=== PATIENT | male | born 1935 | race Caucasian/White ===

== ENCOUNTER 2017-08-23 18:46 | Inpatient (IN) | payer OTHER, MEDICARE ==
[2017-08-23] MEDS ORDERED: SODIUM CHLORIDE 0.9% 1,000 ML IV STA ×2 (20:13→21:30)
[2017-08-23 20:33] LABS: Anisocytosis Slight; Basophils % (A) 1 %; CH 28.7; CHCM 32.2; Eosinophils # (A) 0.5 k/uL (0-0.7); Eosinophils % (A) 10 %; HCT 34.4 % (39.0-53.0); HDW 2.63; HGB 10.7 gm/dL (13.0-17.5); Luc # (Auto) 0.07; Luc % (Auto) 1; Lymphocytes # (A) 0.5 k/uL (1.0-4.8); Lymphocytes % (A) 9 %; MCH 28.1 pg (25.0-35.0); MCHC 31.2 g/dL (31.0-37.0); MCV 90.1 fL (80.0-100.0); Mean Platelet Volume 7.5; Monocytes # (A) 0.4 k/uL (0-1.0); Monocytes % (A) 7 %; Neutrophils # (A) 3.6 k/uL (1.3-7.7); Neutrophils % (A) 71 %; RBC 3.82 m/uL (4.30-5.90); RDW 18.1 % (11.5-15.5); WBC (Perox) 5.25
[2017-08-23 20:42] LABS: Calcium 11.6 mg/dL (8.4-10.2); Potassium 4.1 mmol/L (3.5-5.1); Total Bilirubin 0.6 mg/dL (0.2-1.3)
--- NOTE | 2017-08-23 21:00 | ED ---
General Adult HPI - General Chief complaint: Abdominal Pain Stated complaint: [facility] Time Seen by Provider: 08/23/17 19:15 Source: patient, RN notes reviewed, old records reviewed Mode of arrival: ambulatory Limitations: no limitations - History of Present Illness Initial comments: This is a 82-year-old male to the ER for evaluation. Patient has a for evaluation regarding abdominal discomfort abdominal pain. Patient states he recently had outpatient CT showing CA was told to come the hospital for evaluation. Patient states he feels weak decreased appetite and positive for weight loss. Patient denies fevers denies nausea or vomiting currently. Denies significant diarrhea. - Related Data Home Medications Medication Instructions Recorded Confirmed Apixaban [Eliquis] 5 mg PO BID 08/23/17 08/23/17 Aspirin EC [Ecotrin Low Dose] 81 mg PO HS 08/23/17 08/23/17 Loratadine [Claritin] 10 mg PO HS 08/23/17 08/23/17 Metoprolol Succinate [Toprol XL] 25 mg PO HS 08/23/17 08/23/17 Simvastatin [Zocor] 40 mg PO HS 08/23/17 08/23/17 Terazosin [Hytrin] 5 mg PO HS 08/23/17 08/23/17 Triamcinolone 0.1% Ointment 1 applic TOPICAL BID 08/23/17 08/23/17 [Kenalog] Allergies Allergy/AdvReac Type Severity Reaction Status Date / Time No Known Allergies Allergy Verified 08/23/17 19:51 Review of Systems ROS Statement: Those systems with pertinent positive or pertinent negative responses have been documented in the HPI. ROS Other: All systems not noted in ROS Statement are negative. Past Medical History Past Medical History: Hypertension History of Any Multi-Drug Resistant Organisms: None Reported Past Surgical History: Appendectomy, Ear Surgery Additional Past Surgical History / Comment(s): sinus surgery, eye surgery Past Psychological History: No Psychological Hx Reported Smoking Status: Current every day smoker Past Alcohol Use History: Occasional Past Drug Use History: None Reported General Exam Limitations: no limitations General appearance: alert, in no apparent distress Head exam: Present: atraumatic, normocephalic, normal inspection Eye exam: Present: normal appearance, PERRL, EOMI. Absent: scleral icterus, conjunctival injection, periorbital swelling ENT exam: Present: normal exam, mucous membranes moist Neck exam: Present: normal inspection. Absent: tenderness, meningismus, lymphadenopathy Respiratory exam: Present: normal lung sounds bilaterally. Absent: respiratory distress, wheezes, rales, rhonchi, stridor Cardiovascular Exam: Present: regular rate, normal rhythm, normal heart sounds. Absent: systolic murmur, diastolic murmur, rubs, gallop, clicks GI/Abdominal exam: Present: soft, normal bowel sounds. Absent: distended, tenderness, guarding, rebound, rigid Extremities exam: Present: normal inspection, full ROM, normal capillary refill. Absent: tenderness, pedal edema, joint swelling, calf tenderness Back exam: Present: normal inspection Neurological exam: Present: alert, oriented X3, CN II-XII intact Psychiatric exam: Present: normal affect, normal mood Skin exam: Present: warm, dry, intact, normal color. Absent: rash Course Vital Signs 08/23/17 19:09 Temperature 96.7 F L Pulse Rate 97 Respiratory 16 Rate Blood Pressure 133/75 O2 Sat by Pulse 100 Oximetry - Reevaluation(s) Reevaluation #1: 08/23/17 21:32 [facility] as call for patient's outpatient CT Reevaluation #2: 08/23/17 21:32 Patient denies any acute pain, mild nausea Medical Decision Making - Medical Decision Making 82 male to the ER are for evaluation of new diagnosis of abdominal mass. Patient also with acute pancreatitis. Patient is to be admitted for further evaluation and treatment, record request is made for patient's outpatient lab studies and CAT scan - Lab Data Result diagrams: 08/23/17 20:20 08/23/17 20:20 Lab Results 08/23/17 08/23/17 08/23/17 Range/Units 20:20 20:20 20:20 WBC 5.0 (3.8-10.6) k/uL RBC 3.82 L (4.30-5.90) m/uL Hgb 10.7 L (13.0-17.5) gm/dL Hct 34.4 L (39.0-53.0) % MCV 90.1 (80.0-100.0) fL MCH 28.1 (25.0-35.0) pg MCHC 31.2 (31.0-37.0) g/dL RDW 18.1 H (11.5-15.5) % Plt Count 265 (150-450) k/uL Neutrophils % 71 % Lymphocytes % 9 % Monocytes % 7 % Eosinophils % 10 % Basophils % 1 % Neutrophils # 3.6 (1.3-7.7) k/uL Lymphocytes # 0.5 L (1.0-4.8) k/uL Monocytes # 0.4 (0-1.0) k/uL Eosinophils # 0.5 (0-0.7) k/uL Basophils # 0.0 (0-0.2) k/uL Anisocytosis Slight Sodium 136 L (137-145) mmol/L Potassium 4.1 (3.5-5.1) mmol/L Chloride 101 (98-107) mmol/L Carbon Dioxide 25 (22-30) mmol/L Anion Gap 10 mmol/L BUN 25 H (9-20) mg/dL Creatinine 1.51 H (0.66-1.25) mg/dL Est GFR (MDRD) Af Amer 54 (>60 ml/min/1.73 sqM) Est GFR (MDRD) Non-Af 45 (>60 ml/min/1.73 sqM) Glucose 92 (74-99) mg/dL Calcium 11.6 H (8.4-10.2) mg/dL Total Bilirubin 0.6 (0.2-1.3) mg/dL AST 70 H (17-59) U/L ALT 68 (21-72) U/L Alkaline Phosphatase 466 H (38-126) U/L Total Creatine Kinase 33 L (55-170) U/L CK-MB (CK-2) 1.8 (0.0-2.4) ng/mL CK-MB (CK-2) Rel Index 5.5 Total Protein 6.0 L (6.3-8.2) g/dL Albumin 3.4 L (3.5-5.0) g/dL Amylase 193 H (30-110) U/L Lipase 1162 H (23-300) U/L Disposition Clinical Impression: Abdominal pain, Pancreatitis, Abdominal malignancy Disposition: ADMITTED IP TO THIS [facility] Condition: Fair Referrals: Moris Pickering DO [Primary Care Provider] - 1-2 days
[2017-08-23 21:03] LABS: Creatine Kinase MB 1.8 ng/mL (0.0-2.4)
[2017-08-24 00:52] VITALS: BMI 21.9
[2017-08-24] MEDS ORDERED: HYDROmorphone 0.5 MG/0.5 ML SYRINGE IVP PRN (15:00)
[2017-08-24] MEDS ORDERED: TEMAZEPAM 15 MG CAP PO PRN (15:00)
[2017-08-24] MEDS ORDERED: ALPRAZolam 0.25 MG TAB PO PRN (15:00)
--- NOTE | 2017-08-24 16:24 | HP ---
HISTORY AND PHYSICAL DATE OF SERVICE: 08/24/2017. CHIEF COMPLAINT: Abdominal pain and mass. HISTORY: This 82-year-old gentleman with a past medical hypertension, history of right leg DVT in 2006 being followed by the [facility] and Dr. Barnes in the outpatient setting apparently had a CT scan of the abdomen and pelvis in the [facility] which showed a mass lesion and the patient was recommended to go to the hospital and the patient presented to [facility] and admitted for further evaluation and treatment. There is no history of fever, rigors. No history of headache, loss of consciousness or seizures. The pain is reported in the mid part of the abdomen, radiating up to the umbilicus. Patient also reports a weight loss of about 10 pounds. There is no history of fever, rigors. No headache, loss of consciousness or seizures. The patient also had some dysphagia, nausea, vomiting and other symptoms also. PAST MEDICAL HISTORY: History of hypertension, history of DVT, history of surgeries, history of nicotine dependence. MEDICATIONS: Prior to admission include: 1. Kenalog 1 application b.i.d. 2. Hytrin 5 mg q.h.s. 3. Zocor 40 mg q.h.s. 4. Toprol XL 20 mg. 5. Claritin 10 mg daily. 6. Aspirin 81 mg daily. 7. Eliquis 5 mg p.o. b.i.d. ALLERGIES: None. FAMILY HISTORY: No history of heart disease or strokes in the family. SOCIAL HISTORY: Previous history of smoking. No history of alcohol. Otherwise the patient is apparently homeless according to him. REVIEW OF SYSTEMS: ENT: No diminished hearing or vision. CARDIOVASCULAR: No angina or palpitations. RESPIRATORY: No cough or hemoptysis. GI: As mentioned earlier. : No dysuria. NERVOUS SYSTEM: No numbness or weakness. ALLERGY/IMMUNOLOGY: No asthma or hayfever. MUSCULOSKELETAL: As mentioned earlier. HEMATOLOGY/ONCOLOGY: As mentioned earlier. ENDOCRINE: No history of diabetes or hypothyroidism. CONSTITUTIONAL: As mentioned earlier. DERMATOLOGY: Negative. RHEUMATOLOGY: Negative. PSYCHIATRY: As mentioned earlier. PHYSICAL EXAM: Patient is alert, oriented x3. Pulse 66, blood pressure 147/81, respirations 16, temperature is 97.8, pulse ox 98% on room air. HEENT: Conjunctivae normal. Oral mucosa moist. NECK: No jugular venous distention. No carotid bruit. No lymph nodes. CARDIOVASCULAR: S1, S2. RESPIRATORY: Breath sounds diminished in the bases. A few scattered rhonchi and crackles. ABDOMEN: Soft. Diffuse distention. Diffuse tenderness present. No guarding. No rigidity. No mass palpable. No hepatosplenomegaly. No ascites. LEGS: Minimal edema. NERVOUS SYSTEM: Higher functions as mentioned earlier. Moves all 4 limbs. No focal motor or sensory deficits. LYMPHATICS: No lymphadenopathy in the neck, axillae or groin. SKIN: No rash, ulcer or bleeding. LAB STUDIES: WBC 5, hemoglobin 10.7, sodium 130, potassium 4.9, creatinine 1.5. ASSESSMENT: 1. Abdominal pain rule out intraabdominal neoplasm. 2. Elevated amylase and lipase with pancreatitis. 3. Increased creatinine with renal failure. 4. Hypercalcemia. 5. Increased alkaline phosphatase. 6. Anemia normocytic. 7. History of hypertension. 8. History of weight loss. 9. History of DVT on the right leg. 10.Remote history of nicotine dependence. RECOMMENDATIONS AND DISCUSSION: In this 82-year-old gentleman who presented with multiple complex medical issues, will monitor the patient closely. Continue the current medications and continue symptomatic treatment. Will resume the home medications. Otherwise I would also recommend Dr. Jenkins and Dr. De Paz. Patient had multiple GI symptomatology. Patient might require endoscopes also but whatever the exact nature of the mass lesion is not available. Will obtain the CT scan reports and plan. The patient might also need biopsy depending upon the location of the mass lesion. The overall prognosis is guarded because of multiple complex medical issues as mentioned earlier. Further recommendations to follow. MMODL / IJN: [id number] /
[2017-08-24] MEDS: LORATADINE 10 MG TAB PO SCH (19:41)
[2017-08-24] MEDS: TERAZOSIN 5 MG CAP PO SCH (19:42)
[2017-08-24] MEDS: APIXABAN 5 MG TAB PO SCH (19:42)
[2017-08-24] MEDS: METOPROLOL SUCCINATE (ER) 25 MG TAB.ER.24H PO SCH (19:42)
[2017-08-24] MEDS: TRIAMCINOLONE ACET 0.1% OINTMENT 80 GM TUBE TOPICAL SCH (19:43)
[2017-08-24] MEDS ORDERED: NON-FORMULARY DRUG (Simvastatin 40 MG) PO SCH (21:00)
[2017-08-24] MEDS ORDERED: ASPIRIN 81 MG PO SCH (21:00)
[2017-08-25 07:52] LABS: Anisocytosis Slight; Basophils % (A) 1 %; CH 27.8; Eosinophils # (A) 0.4 k/uL (0-0.7); Eosinophils % (A) 10 %; HCT 29.8 % (39.0-53.0); HGB 9.4 gm/dL (13.0-17.5); Hypochromasia Slight; Luc # (Auto) 0.12; Luc % (Auto) 3; Lymphocytes # (A) 0.4 k/uL (1.0-4.8); Lymphocytes % (A) 9 %; MCH 28.7 pg (25.0-35.0); MCHC 31.6 g/dL (31.0-37.0); MCV 90.5 fL (80.0-100.0); Mean Platelet Volume 7.1; Monocytes # (A) 0.3 k/uL (0-1.0); Monocytes % (A) 8 %; Neutrophils # (A) 2.9 k/uL (1.3-7.7); Neutrophils % (A) 70 %; RBC 3.29 m/uL (4.30-5.90); RDW 17.5 % (11.5-15.5); WBC 4.1 k/uL (3.8-10.6)
[2017-08-25 08:10] LABS: ALT 71 U/L (21-72); AST 75 U/L (17-59); Alkaline Phosphatase 434 U/L (38-126); Amylase 172 U/L (30-110); Anion Gap 7 mmol/L; Blood Urea Nitrogen 23 mg/dL (9-20); Calcium 10.4 mg/dL (8.4-10.2); Carbon Dioxide 22 mmol/L (22-30); Chloride 107 mmol/L (98-107); Cholesterol 116 mg/dL (<200); Glucose 71 mg/dL (74-99); HDL Cholesterol 41 mg/dL (40-60); Non-African American GFR(MDRD) 56 (>60 ml/min/1.73 sqM); Potassium 4.4 mmol/L (3.5-5.1); Sodium 136 mmol/L (137-145); Total Bilirubin 0.6 mg/dL (0.2-1.3); Total Protein 4.7 g/dL (6.3-8.2)
[2017-08-25] MEDS: APIXABAN 5 MG TAB PO SCH ×2 (08:11→21:08)
[2017-08-25] MEDS: PANTOPRAZOLE 40 MG/10 ML VIAL IVP SCH (08:11)
[2017-08-25] MEDS: TRIAMCINOLONE ACET 0.1% OINTMENT 80 GM TUBE TOPICAL SCH ×2 (08:11→21:07)
[2017-08-25 13:44] LABS: INR 1.3 (<1.2); Prothrombin Time 12.4 sec (9.0-12.0)
[2017-08-25] MEDS ORDERED: RX INFO: IV CONTRAST WAS GIVEN 1 EACH MISC MISCELLANE PRN (14:50)
[2017-08-25] MEDS: IOHEXOL 350 MG/ML 25 ML BOTTLE (ORAL USE) PO PRN ×2 (15:32→16:30)
--- NOTE | 2017-08-25 17:21 | P.CONS ---
History of Present Illness - Reason for Consult Consult date: 08/25/17 concern for malignancy Requesting physician: Urbano Means - Chief Complaint sent to hospital by [facility] for abnormal CT - History of Present Illness Mr. Davidson is a very pleasant male pt who [facility]. He states that he has noticed changes in his health for about the last year. More recently he has c/o abd bloating and belching, he has lost about 8 lbs in the last month or so, he was recently diagnosed with RLE DVT and placed on anticoagulation, he vomited twice in the last month which he has not done before, he has constipation chronically but it has been worse. Pt noticed painless abd and suprapubic distension over the last month, he denies fever, sweats, dysphagia, he had EGD many years ago, no history of GERD or ulcer, no acute changes in breathing, [place]VAL[place], chest pain or palpitations, dizziness, both lower extremities are swollen, L>R, appetite fair, energy levels fair. Review of Systems 14 point ROS as stated in HPI Past Medical History Past Medical History: Hypertension Additional Past Medical History / Comment(s): Pt states he had blood clot in right leg in February 2017 History of Any Multi-Drug Resistant Organisms: None Reported Past Surgical History: Appendectomy, Ear Surgery Additional Past Surgical History / Comment(s): sinus surgery, eye surgery Past Psychological History: No Psychological Hx Reported Smoking Status: Former smoker Past Alcohol Use History: Occasional Past Drug Use History: None Reported Medications and Allergies Home Medications Medication Instructions Recorded Confirmed Type Apixaban [Eliquis] 5 mg PO BID 08/23/17 08/23/17 History Aspirin EC [Ecotrin Low Dose] 81 mg PO HS 08/23/17 08/23/17 History Loratadine [Claritin] 10 mg PO HS 08/23/17 08/23/17 History Metoprolol Succinate [Toprol XL] 25 mg PO HS 08/23/17 08/23/17 History Simvastatin [Zocor] 40 mg PO HS 08/23/17 08/23/17 History Terazosin [Hytrin] 5 mg PO HS 08/23/17 08/23/17 History Triamcinolone 0.1% Ointment 1 applic TOPICAL BID 08/23/17 08/23/17 History [Kenalog] Allergies Allergy/AdvReac Type Severity Reaction Status Date / Time No Known Allergies Allergy Verified 08/23/17 19:51 Physical Exam Vitals: Vital Signs Temp Pulse Resp BP Pulse Ox 08/25/17 15:00 97.5 F L 76 16 104/65 98 08/25/17 07:00 97.0 F L 79 18 117/67 96 08/24/17 23:16 78 18 08/24/17 21:25 97.5 F L 78 18 120/70 97 Intake and Output 08/25/17 08/25/17 08/25/17 06:59 14:59 22:59 Intake Total 590 Balance 590 Intake: Oral 590 Other: Voiding Method Toilet Toilet # Voids 2 2 Weight 67.585 kg - Constitutional General appearance: cooperative, no acute distress, thin - EENT Eyes: anicteric sclerae, EOMI, PERRLA, normal appearance ENT: hearing grossly normal, normal oropharynx - Respiratory Respiratory: bilateral: CTA - Cardiovascular Heart sounds: normal: S1, S2 leg Peripheral Edema: right: 1+, left: 2+, bilateral: Pitting - Gastrointestinal abd is distended, has mult palpable masses in the lower quadrants, no hepatosplenomegaly - Genitourinary suprapubic swelling, multiple lymph nodes palpable, largest and firmest is in the right inguinal area Male genitourinary: right inguinal lymphadenopathy - Integumentary Integumentary: pale - Neurologic Neurologic: CNII-XII intact - Musculoskeletal Musculoskeletal: strength equal bilaterally - Psychiatric Psychiatric: A&O x's 3, appropriate affect, intact judgment & insight Results CBC & Chem 7: 08/25/17 07:36 08/25/17 07:36 Labs: Abnormal Lab Results - Last 24 Hours (Table) 08/25/17 08/25/17 08/25/17 Range/Units 07:36 07:36 13:21 RBC 3.29 L (4.30-5.90) m/uL Hgb 9.4 L (13.0-17.5) gm/dL Hct 29.8 L (39.0-53.0) % RDW 17.5 H (11.5-15.5) % Lymphocytes # 0.4 L (1.0-4.8) k/uL PT 12.4 H (9.0-12.0) sec INR 1.3 H (<1.2) Sodium 136 L (137-145) mmol/L BUN 23 H (9-20) mg/dL Glucose 71 L (74-99) mg/dL Calcium 10.4 H (8.4-10.2) mg/dL AST 75 H (17-59) U/L Alkaline Phosphatase 434 H (38-126) U/L Total Protein 4.7 L (6.3-8.2) g/dL Albumin 2.4 L (3.5-5.0) g/dL Amylase 172 H (30-110) U/L Lipase 1149 H (23-300) U/L Comments: CT report from outside facility reviewed Assessment and Plan (1) Lymphadenopathy of other site Narrative/Plan: Case discussed with IM. CT ordered. Surgery will be consulted for lymph node excision Status: Acute (2) Deep vein thrombosis Narrative/Plan: RLE, pt on eliquis, this will be continued for now, hold day before lymph node excision planned then resume once ok with Surgeon. Status: Acute Time with Patient: Greater than 30
--- NOTE | 2017-08-25 17:38 | PN ---
PROGRESS NOTE DATE OF SERVICE: 08/25/2017 INTERVAL HISTORY: This 82-year-old gentleman who was admitted with abdominal pain and mass around the aorta was suspected of multiple intraabdominal lymphadenopathy. The possibility of lymphoma versus metastasis is considered at this time. The official reports available from the [place] and not disc. Hematology/Oncology is consulted. The patient complaining of abdomen pain which has been treated symptomatically. PAST MEDICAL HISTORY: Reviewed. REVIEW OF SYSTEMS: Cardiovascular system: No angina or palpitations. Respiratory: No cough. GI: As mentioned. : No dysuria or hematuria. Central nervous system: No numbness or weakness. CURRENT MEDICATIONS: Reviewed and include: 1. Xanax 0.5 t.i.d. 2. Eliquis 5 mg p.o. b.i.d. 3. Aspirin 81 mg. 4. Dilaudid. 5. Toprol-XL. 6. Restoril. 7. Protonix. 8. Hytrin. PHYSICAL EXAM: Patient is alert, oriented times three. Pulse is 79. Blood pressure 117/60, respiration 18, temperature 97 degrees, pulse ox 97% on room air. HEENT conjunctivae normal. Oral mucosa moist. Neck is no jugular venous distention. No carotid bruit. No lymph node enlargement. CARDIOVASCULAR: S1, S2 normal. No S3. No S4. Respiratory: Breath sounds diminished at the bases. A few scattered rhonchi. No crackles. ABDOMEN: Soft, obese, mild diffuse tenderness present. Legs: No edema no swelling. NERVOUS SYSTEM: Higher functions as mentioned. Moves all 4 limbs. No focal motor or sensory deficits. Lymphatics: Lymphatics: No lymph nodes palpable in the neck, axillae or groin. LABORATORY DATA: WBC 4.2, hemoglobin 9.5, INR 1.3, sodium is 136 and calcium is 10.4, alkaline phosphatase 434, albumin is 2.4, amylase 172, lipase 149. ASSESSMENT: 1. Abdominal pain possible intraabdominal neoplasm lymphoma versus metastatic malignancy. 2. Elevated amylase and lipase with possible pancreatitis or pancreatic involvement. 3. Increased creatinine with acute renal failure. 4. Hypercalcemia secondary to malignancy. 5. Increased alkaline phosphatase. 6. Anemia normocytic. 7. History of hypertension of recent weight loss. 8. History of deep vein thrombosis of the right leg. 9. Remote history of nicotine dependence. RECOMMENDATIONS AND DISCUSSION: Recommend to continue monitoring, symptomatic treatment, current management and treatment. Otherwise at this time. I recommend follow with Hematology/ Oncology. I will also discuss the case with interventional radiology for possible biopsy. Try to obtain the CD from [facility] if it is not available. The patient may have to have PET scan. Otherwise repeat labs. Once again, the prognosis guarded. Discussed with the patient and understands and agrees. Further recommendations to follow. Prognosis extremely guarded because of multiple medical issues. MMODL / IJN: [id number] / BRANDON
--- NOTE | 2017-08-25 18:01 | CT ---
EXAMINATION TYPE: CT abdomen pelvis w con DATE OF EXAM: 08/25/2017 COMPARISON: NONE HISTORY: Difficulty swallowing. CT DLP: 657.2 mGycm Automated exposure control for dose reduction was used. TECHNIQUE: Helical acquisition of images was performed from the lung bases through the pelvis. CONTRAST: Performed with Oral Contrast and with IV Contrast, patient injected with 100 mL of Omnipaque 300. FINDINGS: There are mild to moderate bilateral pleural effusions. There is patchy atelectasis at the lung bases . There is moderate ascites fluid throughout the abdomen. There is a 3 cm low-density area in the anter ior right lobe of the liver near the surface. Gallbladder appears normal. There are multiple cysts in the spleen. There is extensive retroperitoneal density encasing the abdominal aorta and the inferior vena cava. T his measures 10 x 10 cm. There is a 5 x 6 cm cyst in the lower pole right kidney. There is no hydronephrosis. There is also ad enopathy at the right renal hilum. Abdominal aorta is atheromatous. There is no sign of a bowel obstr uction. Bladder wall is somewhat thickened. Lumbar spine is intact. I see no focal bone destruction. There is bilateral hydronephrosis. I see no evidence of a bowel obstruction. I see no intestinal wall thickening. IMPRESSION: BILATERAL PLEURAL EFFUSIONS WITH BASILAR PULMONARY ATELECTASIS. MASSIVE ASCITES. LOW-DENSITY LESION ON THE ANTERIOR RIGHT LOBE OF THE LIVER. MASSIVE RETROPERITONEAL ADENOPATHY WITH B ILATERAL HYDRONEPHROSIS. THIS COULD RELATE TO LYMPHOMA. HYDRONEPHROSIS PROBABLY RELATES TO URETERAL I NVOLVEMENT. MILD BLADDER WALL THICKENING IS NONSPECIFIC. THERE IS SUBCUTANEOUS DENSITY NOTED THAT COULD RELATE TO ANASARCA.
[2017-08-25] MEDS: METOPROLOL SUCCINATE (ER) 25 MG TAB.ER.24H PO SCH (21:07)
[2017-08-25] MEDS: LORATADINE 10 MG TAB PO SCH (21:07)
[2017-08-25] MEDS: TERAZOSIN 5 MG CAP PO SCH (21:07)
[2017-08-26 07:26] LABS: Anisocytosis Slight; Basophils % (A) 1 %; CH 27.7; CHCM 30.9; Eosinophils # (A) 0.5 k/uL (0-0.7); Eosinophils % (A) 11 %; HCT 29.5 % (39.0-53.0); HDW 2.47; HGB 9.1 gm/dL (13.0-17.5); Hypochromasia Slight; Luc # (Auto) 0.12; Luc % (Auto) 3; Lymphocytes # (A) 0.4 k/uL (1.0-4.8); Lymphocytes % (A) 9 %; MCH 27.9 pg (25.0-35.0); MCHC 30.9 g/dL (31.0-37.0); MCV 90.4 fL (80.0-100.0); Mean Platelet Volume 6.9; Monocytes # (A) 0.4 k/uL (0-1.0); Monocytes % (A) 9 %; Neutrophils % (A) 68 %; RBC 3.27 m/uL (4.30-5.90); RDW 17.5 % (11.5-15.5); WBC 4.4 k/uL (3.8-10.6); WBC (Perox) 4.63
[2017-08-26 07:51] LABS: ALT 59 U/L (21-72); AST 53 U/L (17-59); Alkaline Phosphatase 414 U/L (38-126); Amylase 171 U/L (30-110); Anion Gap 6 mmol/L; Blood Urea Nitrogen 24 mg/dL (9-20); Calcium 10.6 mg/dL (8.4-10.2); Carbon Dioxide 24 mmol/L (22-30); Chloride 106 mmol/L (98-107); Glucose 72 mg/dL (74-99); Non-African American GFR(MDRD) 52 (>60 ml/min/1.73 sqM); Potassium 4.5 mmol/L (3.5-5.1); Sodium 136 mmol/L (137-145); Total Bilirubin 0.6 mg/dL (0.2-1.3); Total Protein 4.7 g/dL (6.3-8.2)
[2017-08-26] MEDS: APIXABAN 5 MG TAB PO SCH ×2 (10:37→20:50)
[2017-08-26] MEDS: TRIAMCINOLONE ACET 0.1% OINTMENT 80 GM TUBE TOPICAL SCH ×2 (10:37→20:49)
[2017-08-26] MEDS: PANTOPRAZOLE 40 MG/10 ML VIAL IVP SCH (10:37)
--- NOTE | 2017-08-26 12:27 | P.GSCN ---
History of Present Illness Consult date: 08/26/17 Reason for Consult: Right inguinal lymphadenopathy History of present illness: Mr. Davidson is a very pleasant male pt who has been to the [facility] recently for evaluation. He states that he has had weight loss over the last month that he has noticed of approximately 10 pounds. He states he has had multiple episodes of dysphagia that has led to bloating and emesis. He also states that he has recently been diagnosed with a blood clot. This is been a right lower extremity DVT and he has been on anticoagulation for this. Pt noticed painless abdominal distension over the last month. He denies fever, sweats, chills, chest pain or palpitations, dizziness. He does complain of swollen bilateral lower extremities Review of Systems All systems: negative Past Medical History Past Medical History: Hypertension Additional Past Medical History / Comment(s): Pt states he had blood clot in right leg in February 2017 History of Any Multi-Drug Resistant Organisms: None Reported Past Surgical History: Appendectomy, Ear Surgery Additional Past Surgical History / Comment(s): sinus surgery, eye surgery Past Psychological History: No Psychological Hx Reported Smoking Status: Former smoker Past Alcohol Use History: Occasional Past Drug Use History: None Reported Medications and Allergies Home Medications Medication Instructions Recorded Confirmed Type Apixaban [Eliquis] 5 mg PO BID 08/23/17 08/23/17 History Aspirin EC [Ecotrin Low Dose] 81 mg PO HS 08/23/17 08/23/17 History Loratadine [Claritin] 10 mg PO 08/23/17 08/23/17 History Metoprolol Succinate [Toprol XL] 25 mg PO HS 08/23/17 08/23/17 History Simvastatin [Zocor] 40 mg PO HS 08/23/17 08/23/17 History Terazosin [Hytrin] 5 mg PO HS 08/23/17 08/23/17 History Triamcinolone 0.1% Ointment 1 applic TOPICAL BID 08/23/17 08/23/17 History [Kenalog] Allergies Allergy/AdvReac Type Severity Reaction Status Date / Time No Known Allergies Allergy Verified 08/23/17 19:51 Surgical - Exam Osteopathic Statement: *. No significant issues noted on an osteopathic structural exam other than those noted in the History and Physical/Consult. Vital Signs Temp Pulse Resp BP Pulse Ox 96.7 F L 97 16 133/75 100 08/23/17 19:09 08/23/17 19:09 08/23/17 19:09 08/23/17 19:08/23/17 19:09 - General no distress, no pain - Eyes PERRL, normal ocular movement - ENT normal nares, normal mucosa, no hearing loss - Neck no masses, no bruits, trachea midline - Respiratory No difficulty with respiration - Cardiovascular Rhythm: regular Heart Sounds: normal: S1, S2 - Abdomen Soft, nontender, mildly distended, no rebound, no guarding, palpable right and left inguinal lymph nodes. - Integumentary no rash, no growths, no abnormal pigmentation - Neurologic normal coordination, normal sensation - Psychiatric oriented to time, oriented to person, oriented to place, speech is normal, memory intact Results - Labs 08/26/17 06:44 08/26/17 06:44 Abnormal Lab Results - Last 24 Hours (Table) 08/25/17 08/26/17 08/26/17 Range/Units 13:21 06:44 06:44 RBC 3.27 L (4.30-5.90) m/uL Hgb 9.1 L (13.0-17.5) gm/dL Hct 29.5 L (39.0-53.0) % MCHC 30.9 L (31.0-37.0) g/dL RDW 17.5 H (11.5-15.5) % Lymphocytes # 0.4 L (1.0-4.8) k/uL PT 12.4 H (9.0-12.0) sec INR 1.3 H (<1.2) Sodium 136 L (137-145) mmol/L BUN 24 H (9-20) mg/dL Creatinine 1.33 H (0.66-1.25) mg/dL Glucose 72 L (74-99) mg/dL Calcium 10.6 H (8.4-10.2) mg/dL Alkaline Phosphatase 414 H (38-126) U/L Total Protein 4.7 L (6.3-8.2) g/dL Albumin 2.4 L (3.5-5.0) g/dL Amylase 171 H (30-110) U/L Lipase 1140 H (23-300) U/L Diabetes panel 08/26/17 Range/Units 06:44 Sodium 136 L (137-145) mmol/L Potassium 4.5 (3.5-5.1) mmol/L Chloride 106 (98-107) mmol/L Carbon Dioxide 24 (22-30) mmol/L BUN 24 H (9-20) mg/dL Creatinine 1.33 H (0.66-1.25) mg/dL Glucose 72 L (74-99) mg/dL Calcium 10.6 H (8.4-10.2) mg/dL AST 53 (17-59) U/L ALT 59 (21-72) U/L Alkaline Phosphatase 414 H (38-126) U/L Total Protein 4.7 L (6.3-8.2) g/dL Albumin 2.4 L (3.5-5.0) g/dL Calcium panel 08/26/17 Range/Units 06:44 Calcium 10.6 H (8.4-10.2) mg/dL Albumin 2.4 L (3.5-5.0) g/dL Pituitary panel 08/26/17 Range/Units 06:44 Sodium 136 L (137-145) mmol/L Potassium 4.5 (3.5-5.1) mmol/L Chloride 106 (98-107) mmol/L Carbon Dioxide 24 (22-30) mmol/L BUN 24 H (9-20) mg/dL Creatinine 1.33 H (0.66-1.25) mg/dL Glucose 72 L (74-99) mg/dL Calcium 10.6 H (8.4-10.2) mg/dL Adrenal panel 08/26/17 Range/Units 06:44 Sodium 136 L (137-145) mmol/L Potassium 4.5 (3.5-5.1) mmol/L Chloride 106 (98-107) mmol/L Carbon Dioxide 24 (22-30) mmol/L BUN 24 H (9-20) mg/dL Creatinine 1.33 H (0.66-1.25) mg/dL Glucose 72 L (74-99) mg/dL Calcium 10.6 H (8.4-10.2) mg/dL Total Bilirubin 0.6 (0.2-1.3) mg/dL AST 53 (17-59) U/L ALT 59 (21-72) U/L Alkaline Phosphatase 414 H (38-126) U/L Total Protein 4.7 L (6.3-8.2) g/dL Albumin 2.4 L (3.5-5.0) g/dL Assessment and Plan (1) Lymphadenopathy of other site Status: Acute Plan: The patient does have palpable lymphadenopathy of bilateral inguinal areas. We will plan for lymph node biopsy. Further recommendations to follow.
[2017-08-26 14:31] LABS: Appearance,Urine Clear (Clear); Bilirubin,Urine Negative (Negative); Glucose,Urine (UA) Negative (Negative); Ketones,Urine Negative (Negative); Leukocyte Esterase,Urine Negative (Negative); Nitrite,Urine Negative (Negative); PH, Urine 5.5 (5.0-8.0); Protein,Urine Negative (Negative); Specific Gravity,Urine 1.009 (1.001-1.035); UA Billing (MACRO vs. MICRO) CHEM; Urobilinogen,Urine <2.0 mg/dL (<2.0)
--- NOTE | 2017-08-26 17:51 | PN ---
PROGRESS NOTE DATE OF SERVICE: 08/26/2017 INTERVAL HISTORY: This 82-year-old gentleman who was admitted with abdominal pain had intraabdominal neoplasm. Patient also had scheduled for biopsy on Monday. No chest pain. No palpitations. No fever. EXAM: Alert, oriented times three. Pulse 64, blood pressure 117/76, respiration 18, temperature 97.6, pulse ox 97% on room air. HEENT: Conjunctivae normal. Neck no JVD. CARDIOVASCULAR: S1, S2 muffled. Respiratory: Breath sounds diminished at the bases. Scattered rhonchi. No crackles. ABDOMEN: Soft, obese, nontender. No mass palpable. Legs no edema. No swelling. Right inguinal adenopathy present. Nervous system: No focal deficits. LABS: WBC 4.2, hemoglobin 10.1 and creatinine is 1.33. ASSESSMENT: 1. Abdominal pain. 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 2. Elevated amylase and lipase with possible pancreatitis or pancreatic malignancy. 3. Increased creatinine with acute renal failure. 4. Hypercalcemia secondary to malignancy. 5. Increased alkaline phosphatase. 6. Anemia, normocytic. 7. History of hypertension. RECOMMENDATIONS AND DISCUSSION: Continue current medication, continue current management and symptomatic treatment. Otherwise at this time lymph node biopsy by Dr. Flood on Monday. Prognosis guarded. Symptomatic treatment. Further recommendations to follow. MMODL / IJN: [id number] / BRANDON
[2017-08-26] MEDS: METOPROLOL SUCCINATE (ER) 25 MG TAB.ER.24H PO SCH (20:48)
[2017-08-26] MEDS: TERAZOSIN 5 MG CAP PO SCH (20:48)
[2017-08-26] MEDS: LORATADINE 10 MG TAB PO SCH (20:49)
[2017-08-27 07:02] LABS: Anisocytosis Slight; Basophils % (A) 1 %; CH 27.8; CHCM 30.9; Eosinophils # (A) 0.4 k/uL (0-0.7); Eosinophils % (A) 10 %; HCT 28.6 % (39.0-53.0); HDW 2.55; HGB 8.9 gm/dL (13.0-17.5); Hypochromasia Slight; Luc # (Auto) 0.12; Luc % (Auto) 3; Lymphocytes # (A) 0.4 k/uL (1.0-4.8); Lymphocytes % (A) 10 %; MCH 28.3 pg (25.0-35.0); MCHC 31.2 g/dL (31.0-37.0); MCV 90.6 fL (80.0-100.0); Mean Platelet Volume 6.9; Monocytes # (A) 0.3 k/uL (0-1.0); Monocytes % (A) 9 %; Neutrophils # (A) 2.6 k/uL (1.3-7.7); Neutrophils % (A) 67 %; RBC 3.16 m/uL (4.30-5.90); RDW 17.7 % (11.5-15.5); WBC 3.8 k/uL (3.8-10.6); WBC (Perox) 3.98
[2017-08-27 07:11] LABS: ALT 57 U/L (21-72); AST 51 U/L (17-59); Alkaline Phosphatase 434 U/L (38-126); Amylase 131 U/L (30-110); Anion Gap 7 mmol/L; Blood Urea Nitrogen 24 mg/dL (9-20); Calcium 10.6 mg/dL (8.4-10.2); Carbon Dioxide 23 mmol/L (22-30); Chloride 107 mmol/L (98-107); Glucose 63 mg/dL (74-99); Non-African American GFR(MDRD) 50 (>60 ml/min/1.73 sqM); Potassium 4.1 mmol/L (3.5-5.1); Sodium 137 mmol/L (137-145); Total Bilirubin 0.6 mg/dL (0.2-1.3); Total Protein 4.7 g/dL (6.3-8.2)
[2017-08-27] MEDS: PANTOPRAZOLE 40 MG TABLET PO SCH (07:41)
[2017-08-27] MEDS: TRIAMCINOLONE ACET 0.1% OINTMENT 80 GM TUBE TOPICAL SCH ×2 (07:42→21:48)
--- NOTE | 2017-08-27 10:33 | P.PN ---
Subjective Principal diagnosis: Lymphadenopathy Patient seen and examined at bedside. No acute events overnight. The patient has no complaints at this time. Objective - Vital Signs Vital signs: Vital Signs Temp 97.9 F 08/27/17 07:00 Pulse 87 08/27/17 07:00 Resp 18 08/27/17 07:00 BP 95/56 08/27/17 07:00 Pulse Ox 96 08/27/17 07:00 Intake & Output 08/26/17 08/27/17 08/27/17 18:59 06:59 18:59 Output Total 160 Balance -160 Weight 67.585 kg Output: Urine 160 Other: Voiding Method Toilet Toilet # Voids 1 1 - Constitutional General appearance: Present: cooperative, no acute distress - EENT Eyes: Present: EOMI, PERRLA ENT: Present: hearing grossly normal - Neck Neck: Present: normal ROM - Respiratory Details: No difficulty with respiration - Cardiovascular Rhythm: regular Heart sounds: normal: S1, S2 - Gastrointestinal Gastrointestinal Comment(s): Soft, nontender, positive distention, no rebound, no guarding - Genitourinary Male genitourinary: left inguinal lymphadenopathy - Integumentary Integumentary: Present: normal turgor - Psychiatric Psychiatric: Present: A&O x's 3, appropriate affect, intact judgment & insight - Labs CBC & Chem 7: 08/27/17 06:17 08/27/17 06:17 Labs: Abnormal Lab Results - Last 24 Hours (Table) 08/27/17 08/27/17 Range/Units 06:17 06:17 RBC 3.16 L (4.30-5.90) m/uL Hgb 8.9 L (13.0-17.5) gm/dL Hct 28.6 L (39.0-53.0) % RDW 17.7 H (11.5-15.5) % Lymphocytes # 0.4 L (1.0-4.8) k/uL BUN 24 H (9-20) mg/dL Creatinine 1.37 H (0.66-1.25) mg/dL Glucose 63 L (74-99) mg/dL Calcium 10.6 H (8.4-10.2) mg/dL Alkaline Phosphatase 434 H (38-126) U/L Total Protein 4.7 L (6.3-8.2) g/dL Albumin 2.3 L (3.5-5.0) g/dL Amylase 131 H (30-110) U/L Lipase 621 H (23-300) U/L Assessment and Plan (1) Lymphadenopathy of other site Status: Acute Plan: Plan for OR on 08/28/2017 for what all lymph node biopsy Hold anticoagulation Nothing by mouth after midnight Further recommendation to follow
[2017-08-27] MEDS: LORATADINE 10 MG TAB PO SCH (21:48)
[2017-08-27] MEDS: METOPROLOL SUCCINATE (ER) 25 MG TAB.ER.24H PO SCH (21:48)
[2017-08-27] MEDS: TERAZOSIN 5 MG CAP PO SCH (21:48)
[2017-08-28 07:42] LABS: ALT 53 U/L (21-72); AST 58 U/L (17-59); Alkaline Phosphatase 462 U/L (38-126); Amylase 139 U/L (30-110); Anion Gap 9 mmol/L; Blood Urea Nitrogen 23 mg/dL (9-20); Calcium 10.5 mg/dL (8.4-10.2); Carbon Dioxide 22 mmol/L (22-30); Chloride 108 mmol/L (98-107); Glucose 75 mg/dL (74-99); Non-African American GFR(MDRD) 50 (>60 ml/min/1.73 sqM); Potassium 4.3 mmol/L (3.5-5.1); Sodium 139 mmol/L (137-145); Total Bilirubin 0.4 mg/dL (0.2-1.3); Total Protein 4.7 g/dL (6.3-8.2)
[2017-08-28 07:45] LABS: Anisocytosis Slight; Basophils % (A) 1 %; CH 27.9; CHCM 30.7; Eosinophils # (A) 0.4 k/uL (0-0.7); Eosinophils % (A) 9 %; HDW 2.58; Hypochromasia Moderate; Luc # (Auto) 0.12; Luc % (Auto) 3; Lymphocytes # (A) 0.4 k/uL (1.0-4.8); Lymphocytes % (A) 9 %; MCH 28.3 pg (25.0-35.0); MCHC 30.9 g/dL (31.0-37.0); MCV 91.7 fL (80.0-100.0); Mean Platelet Volume 6.9; Monocytes # (A) 0.4 k/uL (0-1.0); Monocytes % (A) 9 %; Neutrophils # (A) 3.1 k/uL (1.3-7.7); Neutrophils % (A) 70 %; RBC 3.16 m/uL (4.30-5.90); RDW 17.9 % (11.5-15.5); WBC 4.4 k/uL (3.8-10.6); WBC (Perox) 4.46
--- NOTE | 2017-08-28 10:07 | P.PN ---
<Leatha Spencer - Last Filed: 08/28/17 09:57> Subjective 82-year-old male being seen and examined at bedside. No new events noted. Patient is aware of the plan of care. Patient currently is nothing by mouth scheduled this afternoon per Dr. Flood to undergo biopsy inguinal lymphadenopathy as part of the workup for acute lymphadenopathy. Patient's anticoagulation has been held for 48 hours. INR 1.3 hemoglobin 9 white count 4.4 electrolytes reviewed within normal limits creatinine 1.3 Objective - Vital Signs Vital signs: Vital Signs Temp 97.7 F 08/28/17 07:00 Pulse 78 08/28/17 07:00 Resp 18 08/28/17 07:00 BP 111/66 08/28/17 07:00 Pulse Ox 94 L 08/28/17 07:00 Intake & Output 08/27/17 08/28/17 08/28/17 18:59 06:59 18:59 Weight 67.585 kg Other: Voiding Method Toilet Toilet # Voids 2 1 - Exam Physical exam 82-year-old thin gentleman resting in bed denies any chest pain or shortness of breath Lungs diminished at the bases otherwise adequate air movement on room air Heart S1-S2 audible regular no murmur denying chest pain Abdomen soft not distended bowel tones present not able to palpate any organomegaly Extremities no calf tenderness no edema noted right inguinal adenopathy noted - Labs CBC & Chem 7: 08/28/17 06:59 08/28/17 06:59 Labs: Abnormal Lab Results - Last 24 Hours (Table) 08/28/17 08/28/17 Range/Units 06:59 06:59 RBC 3.16 L (4.30-5.90) m/uL Hgb 9.0 L (13.0-17.5) gm/dL Hct 29.0 L (39.0-53.0) % MCHC 30.9 L (31.0-37.0) g/dL RDW 17.9 H (11.5-15.5) % Lymphocytes # 0.4 L (1.0-4.8) k/uL Chloride 108 H (98-107) mmol/L BUN 23 H (9-20) mg/dL Creatinine 1.38 H (0.66-1.25) mg/dL Calcium 10.5 H (8.4-10.2) mg/dL Alkaline Phosphatase 462 H (38-126) U/L Total Protein 4.7 L (6.3-8.2) g/dL Albumin 2.4 L (3.5-5.0) g/dL Amylase 139 H (30-110) U/L Lipase 881 H (23-300) U/L Assessment and Plan Plan: Impression Right inguinal lymphadenopathy present on admission Recent diagnosis right lower extremity DVT on elquis Mild protein calorie malnutrition Present on admission elevated amylase lipase Plan Patient will be scheduled today by Dr. Flood undergo an excision and obtain a lymph node biopsy as part of the workup for lymphadenopathy Keep nothing by mouth daryl has been on hold The above impression and plan of care have been discussed and directed by signing physician. Leatha Spencer nurse practitioner acting as scribe for signing physician. <Kraig Flood - Last Filed: 08/28/17 17:58> Objective - Vital Signs Vital signs: Vital Signs Temp 98 F 08/28/17 15:00 Pulse 82 08/28/17 15:00 Resp 18 08/28/17 15:00 BP 118/72 08/28/17 15:00 Pulse Ox 95 08/28/17 15:00 Intake & Output 08/27/17 08/28/17 08/28/17 18:59 06:59 18:59 Intake Total 200 Balance 200 Weight 67.585 kg 67.585 kg Intake: IV 200 Oral 0 Other: Voiding Method Toilet Toilet Toilet # Voids 2 1 - Labs CBC & Chem 7: 08/28/17 06:59 08/28/17 06:59 Labs: Abnormal Lab Results - Last 24 Hours (Table) 08/28/17 08/28/17 Range/Units 06:59 06:59 RBC 3.16 L (4.30-5.90) m/uL Hgb 9.0 L (13.0-17.5) gm/dL Hct 29.0 L (39.0-53.0) % MCHC 30.9 L (31.0-37.0) g/dL RDW 17.9 H (11.5-15.5) % Lymphocytes # 0.4 L (1.0-4.8) k/uL Chloride 108 H (98-107) mmol/L BUN 23 H (9-20) mg/dL Creatinine 1.38 H (0.66-1.25) mg/dL Calcium 10.5 H (8.4-10.2) mg/dL Alkaline Phosphatase 462 H (38-126) U/L Total Protein 4.7 L (6.3-8.2) g/dL Albumin 2.4 L (3.5-5.0) g/dL Amylase 139 H (30-110) U/L Lipase 881 H (23-300) U/L Assessment and Plan Plan: As above. Patient with generalized adenopathy in the retroperitoneum and bilateral groin. Patient requires lymph node biopsy. The operating room is overly booked this evening. For that reason his surgery from today is being canceled and replaced on the schedule for tomorrow. The patient is requesting to be discharged. I told him that would be between himself and his admitting physician. The risks of bleeding, infection, seroma, numbness were discussed. He understands and wishes to proceed.
[2017-08-28] MEDS ORDERED: LACTATED RINGERS 1,000 ML IV ONE (13:52)
[2017-08-28] MEDS: PANTOPRAZOLE 40 MG TABLET PO SCH (18:31)
[2017-08-28] MEDS: TRIAMCINOLONE ACET 0.1% OINTMENT 80 GM TUBE TOPICAL SCH ×2 (18:32→21:47)
--- NOTE | 2017-08-28 20:47 | PN ---
PROGRESS NOTE DATE OF SERVICE: 08/27/2017 This 82-year-old gentleman who was admitted with abdominal pain and features of possible lymphoma also had multiple lymphadenopathy in the inguinal region also. No chest pain. No palpitations. EXAM: Alert, oriented times three. Pulse 77, blood pressure 120/62, respiration 18, temp 98.2, pulse ox 99% on room air. HEENT: Conjunctivae normal. Neck: No jugular venous distention. CARDIOVASCULAR: S1, S2 muffled. Respiratory: Breath sounds diminished in the bases. A few scattered rhonchi and crackles. Abdomen soft, nontender. No mass palpable. Legs: No edema. No swelling. LABS: WBC 3.8, hemoglobin 8.9, sodium 139, potassium 4.3, creatinine 1.37, alkaline phosphatase 434, total protein is 4.7, albumin is 2.3, amylase 131, lipase is 121. ASSESSMENT: 1. Abdominal pain. 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 2. Elevated amylase and lipase. 3. Increased creatinine with acute renal failure. RECOMMENDATIONS AND DISCUSSION: Continue current medications, continue current management and symptomatic treatment. Otherwise at this time I recommend follow up closely and possible biopsy. Further recommendations to follow. Surgical consultation. MMODL / IJN: [id number] /
--- NOTE | 2017-08-28 21:02 | PN ---
PROGRESS NOTE DATE OF SERVICE: 08/28/2017 This 82-year-old gentleman admitted with significant lymphadenopathy and possible abdomen is slated to have biopsy. No chest pain. No palpitations. No fever. EXAM: Alert and oriented times three. Pulse is 82, blood pressure 118/72, respiration 18, temperature 98 degrees, pulse ox 94% on room air. HEENT: Conjunctivae normal. Neck: No jugular venous distention. Cardiovascular: S1, S2 muffled. Respirations: Breath sounds diminished at the bases. A few scattered rhonchi and crackles. Abdomen is soft , nontender. No mass palpable. Diffuse distention. Legs no edema. No lymphadenopathy. Central nervous system: No focal deficits. LABS: WBC 4.2, hemoglobin 9, sodium 139, potassium 4.3, LFTs elevated. Total protein is 4.7, amylase and lipase also elevated, alkaline phosphatase is 462. ASSESSMENT: 1. Abdominal pain. Possible neoplastic lymphoma and metastatic malignancy. 2. Elevated amylase and lipase with possible pancreatitis and pancreatic malignancy. 3. Increased creatinine with acute renal failure. 4. Hyperkalemia secondary to malignancy. RECOMMENDATIONS AND DISCUSSION: 1. Recommend to continue current management. 2. Continue symptomatic treatment. 3. Continue current medications. 4. Lymph node biopsy tomorrow by Dr. Flood. 5. Prognosis guarded because of multiple complex medical issues. 6. Further recommendations to follow. MMODL / IJN: [id number] / MTDD
[2017-08-28] MEDS: TERAZOSIN 5 MG CAP PO SCH (21:48)
[2017-08-28] MEDS: METOPROLOL SUCCINATE (ER) 25 MG TAB.ER.24H PO SCH (21:48)
[2017-08-28] MEDS: LORATADINE 10 MG TAB PO SCH (21:48)
[2017-08-29] MEDS: APIXABAN 5 MG TAB PO SCH (07:47)
[2017-08-29] MEDS: PANTOPRAZOLE 40 MG TABLET PO SCH (07:47)
[2017-08-29] MEDS: TRIAMCINOLONE ACET 0.1% OINTMENT 80 GM TUBE TOPICAL SCH (07:48)
[2017-08-29] MEDS ORDERED: IV FLUID CONTINUATION 1,000 ML IV ONE ×2 (11:25)
[2017-08-29] MEDS ORDERED: MIDAZOLAM 2 MG/2 ML VIAL ONE (11:57)
[2017-08-29] MEDS ORDERED: LIDOCAINE 1% INJ 10MG/ML (20 ML MDV) ONE (11:57)
[2017-08-29] MEDS ORDERED: PROPOFOL 10 MG/ML 20 ML VIAL IV ONE (11:57)
[2017-08-29] MEDS ORDERED: KETAMINE 10 MG/ML 20 ML VIAL ONE (11:57)
[2017-08-29] MEDS ORDERED: SODIUM CHLORIDE 0.9% 50 ML with ceFAZolin 2,000 MG IV ONE ×2 (12:11)
[2017-08-29] MEDS ORDERED: BUPIVACAINE (PF) 0.25% 30 ML VIAL SQ ONE (12:17)
--- NOTE | 2017-08-29 12:43 | P.OP ---
Date of Procedure: 08/29/17 Procedure(s) Performed: PREOPERATIVE DIAGNOSIS: Right inguinal lymphadenopathy POSTOPERATIVE DIAGNOSIS: Same PROCEDURE: Right inguinal lymph node biopsy SURGEON: Aleena EBL: Minimal ANESTHESIA: Nigel COMPLICATIONS: None OPERATIVE PROCEDURE: Patient was placed in the supine position. Patient was sedated per anesthesia that time. The right groin was prepped and draped in usual sterile fashion. An oblique incision was made overlying the palpable lymph node. The skin and subcu tissues had been localized with Marcaine. The lymph node was excised using a combination of sharp dissection and cautery. Small lymphatics and vessels were clipped using a Ligaclip. The specimen was sent fresh to pathology. Subcutaneous tissues were closed using 3-0 Vicryl sutures. The skin was closed using a running 4-0 nylon stitch as there was a small vessel running longitudinal to our incision site that was oozing. No further bleeding was seen. Sterile dressings were applied. DISPOSITION: Stable to recovery room
[2017-08-29 12:47] VITALS: TEMP 98
[2017-08-29 13:14] VITALS: RESP 16
--- NOTE | 2017-08-29 16:39 | P.DS ---
Providers Date of admission: 08/23/17 21:29 Attending physician: Urbano Means Consults: 08/24/17 13:08 Consult Physician Routine Consulting Provider: Rian Jenkins Consult Reason/Comments: ABD mass Do you want consulting provider notified?: Yes 08/25/17 17:16 Consult Physician Routine Consulting Provider: Kraig Flood Consult Reason/Comments: right inguinal lymph node excision Do you want consulting provider notified?: Yes, Notify in am Primary care physician: [facility] Course: This 82-year-old gentleman was admitted with the lymphadenopathy and abdominal distention. The patient had significant lymphadenopathy encasing aorta in the CAT scan of the abdomen pelvis. Dr. Jenkins saw the patient. Recommended a biopsy of inguinal lymph nodes. The patient underwent inguinal lymph node biopsy by Dr. Flood. The patient is stable at this time. The patient has been followed up by [place] [facility] in the outpatient setting. Patient is keen on going home. At this time I would recommend the patient to be discharged to be followed up closely in the outpatient setting with the [place] system. I would also recommend the patient to follow-up with the Dr. Jenkins, and as well as Dr. Flood on a when necessary basis also. Further recommendation depending upon the initial biopsy report. Prognosis guarded. Discussed with the patient. The patient understands and agrees. On exam vitals stable. S1 and S2 normal. Abdomen soft mild diffuse distention present. Respirator system clear to auscultation. Final diagnosis 1. Abdominal pain and distention with the significant lymphadenopathy and possibly lymphoma versus metastatic malignancy status post inguinal lymph node biopsy. 2. Elevated amylase and lipase with possible pancreatitis or pancreatic malignancy. 3. Increased creatinine with acute renal failure present on admission. 4. Hypercalcemia secondary to malignancy. Patient Condition at Discharge: Fair Plan - Discharge Summary New Discharge Prescriptions: New ALPRAZolam [Xanax] 0.25 mg PO TID PRN #20 tab PRN Reason: Anxiety HYDROcodone/APAP 5-325MG [Hendrix 5-325] 1 tab PO Q6HR PRN #30 tab PRN Reason: Pain Pantoprazole [Protonix] 40 mg PO AC-BRKFST #30 tab Continue Terazosin [Hytrin] 5 mg PO HS Simvastatin [Zocor] 40 mg PO HS Metoprolol Succinate [Toprol XL] 25 mg PO HS Aspirin EC [Ecotrin Low Dose] 81 mg PO HS Apixaban [Eliquis] 5 mg PO BID Triamcinolone 0.1% Ointment [Kenalog] 1 applic TOPICAL BID Loratadine [Claritin] 10 mg PO HS Discharge Medication List Apixaban [Eliquis] 5 mg PO BID 08/23/17 [History] Aspirin EC [Ecotrin Low Dose] 81 mg PO HS 08/23/17 [History] Loratadine [Claritin] 10 mg PO HS 08/23/17 [History] Metoprolol Succinate [Toprol XL] 25 mg PO HS 08/23/17 [History] Simvastatin [Zocor] 40 mg PO HS 08/23/17 [History] Terazosin [Hytrin] 5 mg PO HS 08/23/17 [History] Triamcinolone 0.1% Ointment [Kenalog] 1 applic TOPICAL BID 08/23/17 [History] ALPRAZolam [Xanax] 0.25 mg PO TID PRN #20 tab 08/28/17 [Rx] HYDROcodone/APAP 5-325MG [Hendrix 5-325] 1 tab PO Q6HR PRN #30 tab 08/28/17 [Rx] Pantoprazole [Protonix] 40 mg PO AC-BRKFST #30 tab 08/28/17 [Rx] Follow up Appointment(s)/Referral(s): Rian Jenkins MD [STAFF PHYSICIAN] - 09/06/17 3:30 pm Moris Pickering DO [Primary Care Provider] - 09/14/17 3:30 pm Patient Instructions/Handouts: Hydrocodone/Acetaminophen (By mouth), Alprazolam (By mouth), Pantoprazole (By mouth), Pancreatitis (DC), Acute Abdominal Pain (DC) Activity/Diet/Wound Care/Special Instructions: diet soft bland act limited till f/u incision care etc per surgery
[2017-08-29 17:05] VITALS: BP 114/65; PULSE 69
[2017-08-30 16:05] LABS: Mis test requested (Non-blood) B-Cell Flow Cyto
== END 2017-08-29 17:30 | disposition home or self-care (01) | DRG 823 ==
LOC: EC 18:46 → 5ONC 21:29
PROVIDERS: ADMIT Hospitalist; ATTEND Hospitalist
PROC: 07BH0ZX Excision of Right Inguinal Lymphatic, Open Approach, Diagnostic (ICD-10-PCS; principal; 2017-08-29 07:30)
DX: C85.93 Non-Hodgkin lymphoma, unspecified, intra-abdominal lymph nodes (principal); K85.90 Acute pancreatitis without necrosis or infection, unspecified; N17.9 Acute kidney failure, unspecified; C25.9 Malignant neoplasm of pancreas, unspecified; E87.5 Hyperkalemia; E44.1 Mild protein-calorie malnutrition; E83.52 Hypercalcemia; R13.10 Dysphagia, unspecified; D64.9 Anemia, unspecified; R59.0 Localized enlarged lymph nodes; I10 Essential (primary) hypertension; F17.200 Nicotine dependence, unspecified, uncomplicated; Z79.01 Long term (current) use of anticoagulants; Z79.899 Other long term (current) drug therapy; Z79.82 Long term (current) use of aspirin; Z90.89 Acquired absence of other organs; Z86.69 Personal history of other diseases of the nervous system and sense organs; Z59.0 Homelessness; Z86.718 Personal history of other venous thrombosis and embolism
CPT/HCPCS: 36415; 74177; 80053; 80061; 81003; 82150; 82550; 82553; 83690; 85025; 85610; 88184; 88185; 88307; 88341; 88342; 96360; 99285